=== PATIENT | female | born 1950 | race Caucasian/White ===

== ENCOUNTER 2023-12-31 10:16 | Outpatient (AMB) | payer MEDICARE, SELFPAY ==
--- NOTE | 2023-12-31 10:49 | AM.OFFWIN_ITS ---
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 Partner tested positive on . Took home test Wednesday, Wednesday, and Wednesday, negative. Patient Tobacco Use Status: Never used Tobacco Allergies No Known Allergies Allergy (Verified 12/31/23 11:03) Medication List - Last Reconciled 12/31/23 by Suzette Tirado, CLERICAL ASSISTANT- omeprazole 20 mg PO DAILY rosuvastatin 5 mg PO DAILY venlafaxine ER 150 mg PO DAILY HPI HPI Comments History of Present Illness Details Here today with concern for COVID Just got back from [place] on Wednesday; went w a group whom have tested + for COVID Live in partner developed sx on Wednesday and then tested + yesterday for COVID - started on Paxlovid On Wednesday she started w/ cough & then had progression of sx. Home test negative to date other sx include runny nose, fatigue, brain fog and headache Using otc meds to help w/ sx Awake alert NAD Sclera and conjunctiva clear bilat Nares with clear d/c bilat, turbinates pale and edematous, no sinus tenderness with palpation bilat TM intact bilat + fluid behind both R>L MMM, pharynx WNL + PND RRR LS CTAB hacking cough w/o distress noted during exam Plan Likely cause of her symptoms are COVID. A viral swab has been obtained today. She will be called with the results. She has outside of the window to start treatment as her symptoms started on Wednesday. Encouraged supportive care. Pr escription for Tessalon to help with the cough along with albuterol provided. Educated that should her symptoms worsen that she should seek additional care. [facility] Social History Patient Tobacco Use Status: Never used Tobacco Physical Exam Vital Signs: Last Vital Signs Temp 97.7 F 12/31/23 10:53 Pulse 96 12/31/23 10:53 Resp 16 12/31/23 10:53 BP 128/75 12/31/23 10:53 Pulse Ox 97 12/31/23 10:53 Oxygen Delivery Method Room Air 12/31/23 10:53 BMI result Body Mass Index 35.2 Assessment & Plan Assessment & Plan (1) URI (upper respiratory infection): Code(s): J06.9 - Acute upper respiratory infection, unspecified Qualifiers: URI type: unspecified viral URI Qualified Code(s): J06.9 - Acute upper respiratory infection, unspecified Plan: . Plan . Orders: Orders SARS-CoV2/FLU/RSV Today J06.9 - Acute upper respiratory infection, unspecified, R09.89 - Other specified symptoms and signs involving the circulatory and respiratory systems Medications: New albuterol sulfate 90 mcg/actuation 2 puffs inhalation Q4-6H PRN 8.5 grams 0RF shortness of breath or wheezing 30 days benzonatate 100 mg PO TID PRN 30 caps 1RF cough 10 days Patient Instructions: Isolation and Precautions for People with COVID-19 Updated October 29, 2022 If you were exposed to COVID-19, you should start taking precautions. Isolation and Exposure If you have COVID-19, you can spread the virus to others. There are precautions you can take to prevent spreading it to others: isolation, masking, and avoiding contact with people who are at high risk of getting very sick. Isolation is used to separate people with confirmed or suspected COVID-19 from those without COVID-19. These recommendations do not change based on COVID-19 hospital admission levels. If you have COVID-19, also see additional information on treatments that may be available to you. This information is intended for a general audience. Healthcare professionals should see Ending Isolation and Precautions for People with COVID-19. This CDC guidance is meant to supplement?not replace?any federal, state, local, territorial, or [place] health and safety laws, rules, and regulations. For Healthcare Professionals: Ending Isolation and Precautions for People with COVID-19 When to Isolate Regardless of vaccination status, you should isolate from others when you have COVID-19. You should also isolate if you are sick and suspect that you have COVID-19 but do not yet have test results. If your results are positive, follow the full isolation recommendations below. If your results are negative, you can end your isolation. IF YOU TEST Negative You can end your isolation IF YOU TEST Positive Follow the full isolation recommendations below When you have COVID-19, isolation is counted in days, as follows: If you had no symptoms Day 0 is the day you were tested (not the day you received your positive test result) Day 1 is the first full day following the day you were tested If you develop symptoms within 10 days of when you were tested, the clock restarts at day 0 on the day of symptom onset If you had symptoms Day 0 of isolation is the day of symptom onset, regardless of when you tested positive Day 1 is the first full day after the day your symptoms started Isolation If you test positive for COVID-19, stay home for at least 5 days and isolate from others in your home. You are likely most infectious during these first 5 days. Wear a high-quality mask if you must be around others at home and in public. Do not go places where you are unable to wear a mask. For travel guidance, see CDC?s Travel webpage. Do not travel. Stay home and separate from others as much as possible. Use a separate bathroom, if possible. Take steps to improve ventilation at home, if possible. Don?t share personal household items, like cups, towels, and utensils. Monitor your symptoms. If you have an emergency warning sign (like trouble breathing), seek emergency medical care immediately. Learn more about what to do if you have COVID-19. Ending Isolation End isolation based on how serious your COVID-19 symptoms were. Loss of taste and smell may persist for weeks or months after recovery and need not delay the end of isolation. If you had no symptoms You may end isolation after day 5. If you had symptoms and: Your symptoms are improving You may end isolation after day 5 if: You are fever-free for 24 hours (without the use of fever-reducing medication). Your symptoms are not improving Continue to isolate until: You are fever-free for 24 hours (without the use of fever-reducing medication). Your symptoms are improving. 1 If you had symptoms and had: Moderate illness (you experienced shortness of breath or had difficulty breathing) You need to isolate through day 10. Severe illness (you were hospitalized) or have a weakened immune system You need to isolate through day 10. Consult your doctor before ending isolation. Ending isolation without a viral test may not be an option for you. If you are unsure if your symptoms are moderate or severe or if you have a weakened immune system, talk to a healthcare provider for further guidance. Regardless of when you end isolation Until at least day 11: Avoid being around people who are more likely to get very sick from COVID-19. Remember to wear a high-quality mask when indoors around others at home and in public. Do not go places where you are unable to wear a mask until you are able to discontinue masking (see below). For travel guidance, see CDC?s Travel webpage. Removing Your Mask After you have ended isolation, when you are feeling better (no fever without the use of fever-reducing medications and symptoms improving), Wear your mask through day 10. OR If you have access to antigen tests, you should consider using them. With two sequential negative tests 48 hours apart, you may remove your mask sooner than day 10. Note: If your antigen test results1 are positive, you may still be infectious. You should continue wearing a mask and wait at least 48 hours before taking another test. Continue taking antigen tests at least 48 hours apart until you have two sequential negative results. This may mean you need to continue wearing a mask and testing beyond day 10. After you have ended isolation, if your COVID-19 symptoms recur or worsen, restart your isolation at day 0. Talk to a healthcare provider if you have questions about your symptoms or when to end isolation. [1] As noted in the Food and Drug Administration labeling for authorized [id number] antigen tests, negative test results do not rule out SARS-CoV-2 infection and should not be used as the sole basis for treatment or patient management decisions, including infection control decisions. Last Updated October 29, 2022 Coding Level of Care Code Est Pt Level 3 (33106) Diagnoses Viral upper respiratory tract infection J06.9 URI type: unspecified viral URI
[2023-12-31 10:53] VITALS: BP 128/75; PULSE 96; RESP 16; TEMP 36.5; O2SAT 97; BMI 35.2
== END 2023-12-31 11:15 | disposition home or self-care (01) ==
PROVIDERS: PCP Internal Medicine; Visit Provider Nurse Practitioner Family
DX: J06.9 Acute upper respiratory infection, unspecified (principal)
CPT/HCPCS: 99213

== ENCOUNTER 2023-12-31 19:15 | Outpatient (REF) | payer MEDICARE, SELFPAY ==
[2023-12-31 20:01] LABS: Influenza A PCR NEGATIVE (Negative); Influenza B PCR NEGATIVE (Negative); Resp Syncy Virus RNA Qual PCR NEGATIVE (Negative); SARS COV2 PCR INHOUSE NEGATIVE (Negative)
== END 2023-12-31 19:16 | disposition home or self-care (01) ==
LOC: HO.LNP 19:15
PROVIDERS: Visit Provider Nurse Practitioner Family
DX: J06.9 Acute upper respiratory infection, unspecified (principal); R09.89 Other specified symptoms and signs involving the circulatory and respiratory systems
CPT/HCPCS: 0241U